=== PATIENT | male | born 1965 | race Two or more races ===

== ENCOUNTER → 2016-07-21 | Emergency (ER) | payer MEDICARE, OTHER ==
[~2016-07-21] VITALS: Ht 177.8 cm; Wt 99.8 kg
[~2016-07-21] MED LIST: FLUORESCEIN SODIUM OPHTH 1 EA STRIP ONE; TETRACAINE HCL/PF 0.5% UD 2 ML BOTTLE ONE
--- NOTE | 2016-07-21 19:52 | NUR ---
PT CAME FROM HOME W/ CO 12/20 LEFT EYE PAIN, STATES "PLASTIC GOT STUCK IN MY EYE". PT UNABLE TO OPEN. STATES THAT IT HAPPENED A COUPLE OF HOURS AGO.
--- NOTE | 2016-07-21 19:55 | NUR ---
AGUSTÍN LAL AT BEDSIDE FOR EVAL
--- NOTE | 2016-07-21 20:24 | NUR ---
Dr mccormick at bedside to perform eye exam
[2016-07-21 20:55] VITALS: BP 158/80
--- NOTE | 2016-07-21 20:56 | NUR ---
Patient discharged to home in stable condition. Written and verbal after care instructions given. Patient verbalizes understanding of instruction.
--- NOTE | 2016-07-21 21:51 | NUR ---
Unable to depart pt completely. depart button grayed out.
== END | disposition home or self-care (01) ==
LOC: ER 20:10
DX: S05.02XA Injury of conjunctiva and corneal abrasion without foreign body, left eye, initial encounter (principal); I10 Essential (primary) hypertension; E11.9 Type 2 diabetes mellitus without complications; F17.200 Nicotine dependence, unspecified, uncomplicated; W22.8XXA Striking against or struck by other objects, initial encounter; Y93.H1 Activity, digging, shoveling and raking; Y92.59 Other trade areas as the place of occurrence of the external cause; Y99.8 Other external cause status
CPT/HCPCS: A4606; Z7610

== ENCOUNTER 2019-03-07 16:16 | Emergency (ER) | payer MEDICARE, OTHER ==
[~2019-03-07] VITALS: Ht 177.8 cm; Wt 98.0 kg
--- NOTE | 2019-03-07 17:56 | NUR ---
PT AAOX4. AMBULATORY C/O PAIN AND REDNESS ON RUB. PER PATIENT "I HAVE A BITE ON MY BACK." PLACED ON MONIOTOR, PULSE OX, AND GOWN. AWAITING MD FOR EVAL.
[2019-03-07] MEDS ORDERED: LIDOCAINE 1%-EPI 1:100,000 20 ML VIAL ONE (18:05)
[2019-03-07] MEDS ORDERED: VANCOMYCIN 1 GM VIAL ONE (18:15)
[2019-03-07] MEDS ORDERED: PIPERACILLIN /TAZOBACTAM 3.375 G VIAL IV ONE (18:15)
[2019-03-07 18:24] LABS: BASOPHILS # (AUTO) 0.2 /CMM (0.0-0.2); BASOPHILS % (AUTO) 1.3 % (0.0-2.0); EOSINOPHILS % (AUTO) 1.9 % (0.0-6.0); HEMATOCRIT 42 % (39-51); HEMOGLOBIN 13.9 g/dL (13.5-17.5); LYMPHOCYTES # (AUTO) 2.5 /CMM (0.8-4.8); LYMPHOCYTES % (AUTO) 20.3 % (20.0-44.0); MEAN CORPUSCULAR HGB CONC 33 g/dl (31.0-36.0); MEAN CORPUSCULAR VOLUME 84 fL (80-96); MONOCYTES # (AUTO) 1.1 /CMM (0.1-1.30); MONOCYTES % (AUTO) 8.8 % (2.0-12.0); NEUTROPHILS # (AUTO) 8.4 /CMM (1.8-8.9); NEUTROPHILS % (AUTO) 67.7 % (43.0-81.0); PLATELET COUNT (AUTO) 308 /CMM (150-450); RED BLOOD CELL COUNT(AUTO) 4.99 MIL/uL (4.5-6.0); WHITE BLOOD COUNT (AUTO) 12.5 K/uL (4.3-11.0)
[2019-03-07] MEDS ORDERED: PIPERACILLIN /TAZOBACTAM 3.375 G in IV D5W 50 ML IV ONE (18:30)
[2019-03-07] MEDS ORDERED: IV NS 0.9% 1,000 ML BAG IV ONE ×2 (18:30)
[2019-03-07] MEDS ORDERED: VANCOMYCIN 1 GM in IV D5W 250 ML IV ONE (18:30)
[2019-03-07] MEDS ORDERED: LIDOCAINE 1%-EPI 1:100,000 20 ML VIAL TP ONE (18:30)
[2019-03-07 18:32] LABS: CALCIUM, SERUM 9.5 mg/dL (8.5-10.1); CREATININE 0.9 mg/dL (0.6-1.3); POTASSIUM 4.1 mmol/L (3.5-5.1)
--- NOTE | 2019-03-07 18:42 | NUR ---
Patient is resting comfortably in bed. Easily aroused. VSS.
[2019-03-07 18:48] LABS: ALBUMIN 4.1 g/dL (3.4-5.0); BILIRUBIN,DIRECT 0.2 mg/dL (0.0-0.2); BILIRUBIN,TOTAL 0.7 mg/dL (0.2-1.0); TOTAL PROTEIN, SERUM 8.2 g/dL (6.4-8.2)
--- NOTE | 2019-03-07 19:36 | NUR ---
Patient is resting comfortably in bed. Easily aroused. VSS.
--- NOTE | 2019-03-07 19:53 | NUR ---
AT BEDSIDE FOR WOUND CARE
--- NOTE | 2019-03-07 20:20 | NUR ---
IV removed. Catheter intact and site benign. Pressure and 4x4 applied to site. No bleeding noted.
--- NOTE | 2019-03-07 20:46 | NUR ---
IV removed. Catheter intact and site benign. Pressure and 4x4 applied to site. No bleeding noted.
[2019-03-07] MEDS ORDERED: BACITRACIN ZINC OINT PACKET 1 EA PACKET TP ONE (20:52)
[2019-03-07] MEDS ORDERED: BACITRACIN ZINC OINT (15 GM) 15 GM TUBE TP SCH (21:00)
--- NOTE | 2019-03-07 21:04 | NUR ---
Patient discharged to home in stable condition. Written and verbal after care instructions given. Patient verbalizes understanding of instruction and RX. pt ambulatory with a steady gait. VSS.
[2019-03-07 21:29] VITALS: BP 124/64
--- NOTE | 2019-03-08 15:10 | NUR ---
RECEIVED A CALL FROM LAB RE: BLOOD CULTURE RESULT OF GRAM POSITIVE COCCI AND CLUSTERS. PAVITHRA LOZOYA MADE AWARE, AND STATED PATIENT IS CURRENTLY ON KEFLEX AND BACTRIM, WILL WAIT FOR SENSITIVITY RESULT.
== END 2019-03-07 21:00 | disposition home or self-care (01) ==
LOC: ER 16:17
DX: E11.65 Type 2 diabetes mellitus with hyperglycemia (principal); L02.212 Cutaneous abscess of back [any part, except buttock and flank]; L02.511 Cutaneous abscess of right hand; E87.1 Hypo-osmolality and hyponatremia; D72.829 Elevated white blood cell count, unspecified; I10 Essential (primary) hypertension; F17.200 Nicotine dependence, unspecified, uncomplicated
CPT/HCPCS: 10061; 36415; 80048; 80076; 82962 ×2; 83605; 85025; 87040 ×2; 87077; 96365; 96368; 99284; A6403; J2543 ×2; J3370; J3490; J7030; J7060

== ENCOUNTER 2019-03-09 19:06 | Emergency (ER) | payer MEDICARE, OTHER ==
[~2019-03-09] VITALS: Ht 177.8 cm; Wt 94.3 kg
[2019-03-09 19:07] VITALS: BP 141/76
[2019-03-09] MEDS ORDERED: BACI/NEOM/POLY B OINT PKT 1 UDPKT PACKET ONE (20:19)
--- NOTE | 2019-03-09 20:20 | NUR ---
PT REC'D A NEW DRSG TO LT UPPER BACK AND TUBE GAUZE ON RT HAND FINGER.
[2019-03-09] MEDS ORDERED: BACI/NEOM/POLY B OINT PKT 1 UDPKT PACKET TP ONE (22:00)
== END 2019-03-09 20:22 | disposition home or self-care (01) ==
LOC: ER 19:11
DX: L02.511 Cutaneous abscess of right hand (principal); L02.212 Cutaneous abscess of back [any part, except buttock and flank]; E11.9 Type 2 diabetes mellitus without complications; I10 Essential (primary) hypertension; F17.200 Nicotine dependence, unspecified, uncomplicated
CPT/HCPCS: 82962-TC

== ENCOUNTER 2020-06-14 21:03 | Inpatient (IN) | payer MEDICARE, OTHER ==
[~2020-06-14] VITALS: Ht 180.3 cm; Wt 88.2 kg
--- NOTE | 2020-06-14 21:03 | NUR ---
[id number] FROM HOME C/O MIDSTERNAL CHEST PAIN X1 WEEK, WORSE TODAY PER RA, BS 266. REC'D 2 SPRAY NITRO AND 162MG ASPIRIN. ALSO C/O HEADACHE, PT AAOX4, PLACED ON MONITOR, NOT IN ANY DISTRESS, GOWNED, VSS, PENDING ER PROVIDER ASHLEY
[2020-06-14] MEDS ORDERED: ONDANSETRON HCL/PF 4 MG/2 ML VIAL ONE (21:47)
[2020-06-14] MEDS ORDERED: MORPHINE SULFATE INJ 4 MG/ML DISP.SYRIN ONE (21:48)
--- NOTE | 2020-06-14 21:48 | NUR ---
PT TO CT
[2020-06-14 21:55] LABS: BASOPHILS # (AUTO) 0.1 /CMM (0.0-0.2); BASOPHILS % (AUTO) 1.3 % (0.0-2.0); EOSINOPHILS % (AUTO) 3.6 % (0.0-6.0); HEMATOCRIT 36 % (39-51); HEMOGLOBIN 11.8 g/dL (13.5-17.5); LYMPHOCYTES # (AUTO) 3.2 /CMM (0.8-4.8); LYMPHOCYTES % (AUTO) 28.4 % (20.0-44.0); MEAN CORPUSCULAR HGB CONC 32 g/dl (31.0-36.0); MEAN CORPUSCULAR VOLUME 79 fL (80-96); MONOCYTES # (AUTO) 0.9 /CMM (0.1-1.30); MONOCYTES % (AUTO) 8.5 % (2.0-12.0); NEUTROPHILS # (AUTO) 6.5 /CMM (1.8-8.9); NEUTROPHILS % (AUTO) 58.2 % (43.0-81.0); PLATELET COUNT (AUTO) 284 /CMM (150-450); RED BLOOD CELL COUNT(AUTO) 4.62 MIL/uL (4.5-6.0); WHITE BLOOD COUNT (AUTO) 11.1 K/uL (4.3-11.0)
[2020-06-14] MEDS ORDERED: MORPHINE SULFATE INJ 2 MG/ML DISP.SYRIN IV ONE (22:00)
[2020-06-14] MEDS ORDERED: IV NS 0.9% 1,000 ML IV ONE (22:00)
[2020-06-14] MEDS ORDERED: ONDANSETRON HCL/PF 4 MG/2 ML VIAL IV ONE (22:00)
--- NOTE | 2020-06-14 22:08 | NUR ---
MEDICATED PER LOCK UP WORKER ORDER, PT XANDER WELL. WILL CONT TO MONITOR.
[2020-06-14 22:17] LABS: ALBUMIN 3.6 g/dL (3.4-5.0); BILIRUBIN,DIRECT 0.1 mg/dL (0.0-0.2); BILIRUBIN,TOTAL 0.4 mg/dL (0.2-1.0); CALCIUM, SERUM 9.2 mg/dL (8.5-10.1); CREATININE 0.9 mg/dL (0.6-1.3); POTASSIUM 3.9 mmol/L (3.5-5.1); TOTAL PROTEIN, SERUM 7.3 g/dL (6.4-8.2)
--- NOTE | 2020-06-14 22:25 | NUR ---
+TROP [phone]
[2020-06-14] MEDS ORDERED: SOD BORATE/BORIC AC/H2O/NACL 118 ML BOTTLE OP ONE (22:30)
--- NOTE | 2020-06-14 22:37 | NUR ---
PT GOING TO 313-2 PER HAND DRILLER.
[2020-06-14] MEDS ORDERED: HEPARIN SODIUM, PORCINE 5000 UNITS/1 ML VIAL IV ONE (23:00)
[2020-06-14] MEDS ORDERED: HEPARIN SODIUM, PORCINE 5000 UNITS/1 ML VIAL ONE (23:02)
[2020-06-14] MEDS ORDERED: SOD BORATE/BORIC AC/H2O/NACL 118 ML BOTTLE ONE (23:02)
--- NOTE | 2020-06-14 23:23 | NUR ---
REPORT GIVEN TO DIONNE BENJAMIN FOR RAMU PT WILL BE TRANSPORTED TO 3RD FLOOR
--- NOTE | 2020-06-14 23:31 | NUR ---
ATTEMPTED TO DO MEDREC; PT UNSURE OF MEDS, CALLED SISTER, WILL SEND LIST TOMORROW
--- NOTE | 2020-06-14 23:46 | NUR ---
PT TRANSPORTED TO 3RD FLOOR
--- NOTE | 2020-06-15 | NUR ---
TELE/RN OPENING NOTES RECEIVED REPORT FROM ED RN АННА. PATIENT COMING TO ROOM 313-2, PATIENT ARRIVED ON UNIT VIA GURNEY AT [id number]. PATIENT SUSTAINED NO INJURIES DURING TRANSPORT. PATIENT ALERT AND ORIENTED X 4. PATIENT STABLE ON ROOM AIR. PATIENT BREATHING IS EVEN AND UNLABORED. NO SIGNS OF SOB OR RESPIRATORY DISTRESS NOTED. PATIENT STATES NO CHEST PAIN NOTED AT THIS TIME, PATIENT STATES MILD HEADACHE. PATIENT HAS BELONGINGS AT BEDSIDE. PATIENT ABLE TO AMBULATE BY SELF, STEADY GAIT. SAFETY MEASURES ARE IN PLACED BED IS LOCKED AND PLACED IN THE LOW POSITION, CALL LIGHT IS WITHIN REACH, SIDE RAILS UP X 2. WILL CONTINUE WITH PATIENT PLAN OF CARE.
[2020-06-15] MEDS ORDERED: ACETAMINOPHEN 325 MG TABLET PO PRN (02:00)
[2020-06-15] MEDS ORDERED: ONDANSETRON HCL/PF 4 MG/2 ML VIAL IVP PRN (02:00)
[2020-06-15] MEDS ORDERED: Z GUARD REMEDY 2 OZ OINT TP PRN (02:00)
[2020-06-15] MEDS ORDERED: MORPHINE SULFATE INJ 2 MG/ML DISP.SYRIN IV PRN (02:00)
[2020-06-15] MEDS: ENOXAPARIN SODIUM 80 MG/0.8 ML DISP.SYRIN SQ SCH ×2 (02:37→14:54)
[2020-06-15 04:00] VITALS: BP 108/56
[2020-06-15 06:39] LABS: BASOPHILS # (AUTO) 0.1 /CMM (0.0-0.2); BASOPHILS % (AUTO) 1.4 % (0.0-2.0); EOSINOPHILS % (AUTO) 5.4 % (0.0-6.0); HEMATOCRIT 36 % (39-51); HEMOGLOBIN 11.8 g/dL (13.5-17.5); LYMPHOCYTES # (AUTO) 4.1 /CMM (0.8-4.8); LYMPHOCYTES % (AUTO) 42.1 % (20.0-44.0); MEAN CORPUSCULAR HGB CONC 33 g/dl (31.0-36.0); MEAN CORPUSCULAR VOLUME 79 fL (80-96); MONOCYTES # (AUTO) 0.8 /CMM (0.1-1.30); MONOCYTES % (AUTO) 7.7 % (2.0-12.0); NEUTROPHILS # (AUTO) 4.2 /CMM (1.8-8.9); NEUTROPHILS % (AUTO) 43.4 % (43.0-81.0); PLATELET COUNT (AUTO) 278 /CMM (150-450); RED BLOOD CELL COUNT(AUTO) 4.55 MIL/uL (4.5-6.0); WHITE BLOOD COUNT (AUTO) 9.8 K/uL (4.3-11.0)
--- NOTE | 2020-06-15 06:45 | NUR ---
MS/RN CLOSING NOTES PATIENT IN BED RESTING. PATIENT IS ALERT AND ORIENTED X 4. PATIENT BREATHING IS EVEN AND UNLABORED. NO SOB OR RESPIRATORY DISTRESS NOTED. PATIENT NEEDS MET DURING SHIFT. PATIENT HAS LEFT AC 20G IV ACCESS INTACT. SAFETY MEASURES ARE IN PLACE, BED IS LOCKED AND PLACED IN THE LOW POSITION, SIDE RAILS UP X 2, CALL LIGHT IS WITHIN REACH. WILL ENDORSE CARE TO DAY SHIFT NURSE.
[2020-06-15 06:52] LABS: CALCIUM, SERUM 8.9 mg/dL (8.5-10.1); CREATININE 0.8 mg/dL (0.6-1.3)
--- NOTE | 2020-06-15 07:07 | NUR ---
VENEER JOINTER OPERATOR OPENING NOTE RECEIVED PATIENT AWAKE IN BED. A/O X4. PT STABLE ON ROOM AIR. NO SOB NOTED. NO S/S OF RESPIRATORY DISTRESS. PATIENT IS ON EXTERNAL TELE REMEDIATION BIOANALYTICS CONSULTANT READING SR 89. NO C/O PAIN AT THIS TIME. IV ACCESS ON LEFT AC 18G INTACT, PATENT, AND FLUSHING WELL. SAFETY MEASURES MAINTAINED AT ALL TIMES. BED IN LOWEST LOCKED POSITION. SIDE RAILS UP X2. CALL LIGHT AND TABLE WITHIN REACH. WILL CONTINUE WITH PLAN OF CARE.
[2020-06-15 08:00] VITALS: BP 131/62
[2020-06-15] MEDS: ASPIRIN EC 81 MG TABLET.DR PO SCH (08:38)
[2020-06-15] MEDS ORDERED: GUAI100S11 PO (09:37)
[2020-06-15] MEDS ORDERED: RISP0.2515 PO (09:37)
[2020-06-15] MEDS ORDERED: TRIH5TAB3 PO (09:37)
[2020-06-15] MEDS ORDERED: ALBU18HF2 IH (09:37)
[2020-06-15] MEDS ORDERED: SERT-439 PO (09:37)
[2020-06-15] MEDS ORDERED: SITA1TAB6 PO (09:37)
[2020-06-15] MEDS ORDERED: LOSA50TA39 PO (09:37)
[2020-06-15] MEDS ORDERED: TRAM50TA2 PO (09:37)
[2020-06-15] MEDS ORDERED: GLIM4TAB37 PO (09:37)
[2020-06-15] MEDS ORDERED: DIGO125T PO (09:37)
[2020-06-15 12:00] VITALS: BP 122/68
--- NOTE | 2020-06-15 14:49 | NUR ---
RECEIVED ORDERS FOR DR ZAMBRANO FOR ACCUCHECK ACHS AND MILD SLIDING SCALE INSULIN. ORDERS READ BACK AND ENTERED. WILL CONTINUE WITH PLAN OF CARE
[2020-06-15] MEDS ORDERED: DEXTROSE 50%-WATER 50 ML DISP.SYRIN IV PRN (15:00)
[2020-06-15 16:00] VITALS: BP_SYST 103; BP_SYST 117; BP_DIAS 65; BP_DIAS 66
[2020-06-15] MEDS: METOPROLOL TARTRATE 25 MG TABLET PO SCH ×2 (16:38→21:32)
--- NOTE | 2020-06-15 17:30 | NUR ---
MAGDALENA ([phone]), PT'S SISTER CALLED AND WAS UPDATED. WILL CONTINUE WITH PLAN OF CARE
[2020-06-15] MEDS: BLOOD SUGAR DIAGNOSTIC 1 EACH STRIP IN SCH ×2 (17:36→21:28)
[2020-06-15] MEDS: INSULIN REGULAR, HUMAN 100 UNIT/ML 3 ML VIAL SQ PRN ×2 (17:38→21:35)
--- NOTE | 2020-06-15 19:12 | NUR ---
ENVIRONMENTAL EDUCATION SPECIALIST CLOSING NOTES PT AWAKE IN BED AT THIS TIME. PT REMAINED STABLE THROUGHOUT SHIFT. ALL CARE, NEEDS, MEDICATIONS AND TREATMENT ADMINISTERED ANTICIPATED PER ORDER. SAFETY PRECAUTIONS IN PLACE AND MAINTAINED AT ALL TIMES. BED IN LOWEST LOCKED POSITION, HOB ELEVATED, SIDE RAILS UPX2, CALL LIGHT AND TABLE WITHIN REACH. WILL ENDORSE TO STILL OPERATOR GIN NURSE FOR RAMU
[2020-06-15 20:00] VITALS: BP 154/81
[2020-06-15] MEDS: ATORVASTATIN 40 MG TABLET PO SCH (21:31)
[2020-06-16] VITALS (7 sets, daily range): BP systolic 101–147; BP diastolic 56–77
[2020-06-16] MEDS: ENOXAPARIN SODIUM 80 MG/0.8 ML DISP.SYRIN SQ SCH (03:32)
[2020-06-16 06:15] LABS: BASOPHILS # (AUTO) 0.2 /CMM (0.0-0.2); BASOPHILS % (AUTO) 2.6 % (0.0-2.0); EOSINOPHILS % (AUTO) 6.1 % (0.0-6.0); HEMATOCRIT 37 % (39-51); HEMOGLOBIN 12.3 g/dL (13.5-17.5); LYMPHOCYTES # (AUTO) 3.1 /CMM (0.8-4.8); LYMPHOCYTES % (AUTO) 38.7 % (20.0-44.0); MEAN CORPUSCULAR HGB CONC 33 g/dl (31.0-36.0); MEAN CORPUSCULAR VOLUME 79 fL (80-96); MONOCYTES # (AUTO) 0.8 /CMM (0.1-1.30); MONOCYTES % (AUTO) 10.5 % (2.0-12.0); NEUTROPHILS # (AUTO) 3.3 /CMM (1.8-8.9); NEUTROPHILS % (AUTO) 42.1 % (43.0-81.0); PLATELET COUNT (AUTO) 297 /CMM (150-450); RED BLOOD CELL COUNT(AUTO) 4.74 MIL/uL (4.5-6.0); WHITE BLOOD COUNT (AUTO) 7.9 K/uL (4.3-11.0)
[2020-06-16] MEDS: INSULIN REGULAR, HUMAN 100 UNIT/ML 3 ML VIAL SQ PRN ×2 (06:18→16:56)
[2020-06-16] MEDS: BLOOD SUGAR DIAGNOSTIC 1 EACH STRIP IN SCH ×2 (06:19→12:29)
--- NOTE | 2020-06-16 06:30 | NUR ---
DISTRICT RECRUITER CALLED. PATIENT HAS BEEN SCHEDULED FOR CARDIAC CATHETERIZATION SCHEDULED FOR 2PM. PATIENT MADE NPO.
[2020-06-16 07:01] LABS: CALCIUM, SERUM 8.7 mg/dL (8.5-10.1); CREATININE 0.8 mg/dL (0.6-1.3); MAGNESIUM 1.6 mg/dL (1.8-2.4); PHOSPHORUS 4.4 mg/dL (2.5-4.9); POTASSIUM 3.9 mmol/L (3.5-5.1)
--- NOTE | 2020-06-16 07:03 | NUR ---
SHEET METAL SHOP FOREMAN OPENING NOTE RECEIVED PATIENT AWAKE IN BED. A/O X4. PT STABLE ON ROOM AIR. NO SOB NOTED. NO S/S OF RESPIRATORY DISTRESS. PATIENT IS ON EXTERNAL TELE PRODUCTION EXPEDITER READING SR 64. NO C/O PAIN AT THIS TIME. IV ACCESS ON LEFT AC 18G INTACT, PATENT, AND FLUSHING WELL. SAFETY MEASURES MAINTAINED AT ALL TIMES. BED IN LOWEST LOCKED POSITION. SIDE RAILS UP X2. CALL LIGHT AND TABLE WITHIN REACH. WILL CONTINUE WITH PLAN OF CARE. Addendum: 06/16/20 at 0758 by JODY GIL RN MS RN OPENING NOTE RECEIVED PATIENT AWAKE IN BED. A/O X4. PT STABLE ON ROOM AIR. NO SOB NOTED. NO S/S OF RESPIRATORY DISTRESS. NO C/O PAIN AT THIS TIME. IV ACCESS ON LEFT AC 18G INTACT, PATENT, AND FLUSHING WELL. SAFETY MEASURES MAINTAINED AT ALL TIMES. BED IN LOWEST LOCKED POSITION. SIDE RAILS UP X2. CALL LIGHT AND TABLE WITHIN REACH. WILL CONTINUE WITH PLAN OF CARE.
[2020-06-16] MEDS: METOPROLOL TARTRATE 25 MG TABLET PO SCH ×2 (09:17→20:49)
[2020-06-16] MEDS: ASPIRIN EC 81 MG TABLET.DR PO SCH (09:17)
[2020-06-16] MEDS: Magnesium 1GM/D5W 100ML PREMIX 100 ML IV SCH ×2 (11:45→12:47)
--- NOTE | 2020-06-16 12:32 | NUR ---
BS 215. PT NPO. INSULIN COVERAGE HELD PRE-PROCEDURE. WILL CONTINUE TO MONITOR.
[2020-06-16] MEDS ORDERED: IODIXANOL 150 ML IV ONE (12:47)
[2020-06-16] MEDS ORDERED: IV NS 0.9% 1,000 ML ONE (12:47)
[2020-06-16] MEDS ORDERED: FENTANYL PF 100MCG/2ML AMPUL ONE (12:47)
[2020-06-16] MEDS ORDERED: MIDAZOLAM HCL 2 MG/2ML VIAL ONE (12:47)
[2020-06-16] MEDS ORDERED: IV SET PRIMARY PUMP SET 1 EA INFUS.SET MC ONE (12:47)
[2020-06-16] MEDS ORDERED: LIDOCAINE HCL/MPF 1% 30 ML VIAL IJ ONE (12:49)
[2020-06-16] MEDS ORDERED: NITROGLYCERIN ICAR 1,000 MCG/10 ML VIAL ICAR ONE (12:49)
--- NOTE | 2020-06-16 13:50 | NUR ---
PT T-BAND ASSESSED AT THIS TIME, PT ABLE TO WIGGLE FINGERS, CAPILLARY REFILL <3SECONDS, RIGHT RADIAL PULSE PRESENT, SPO2 96%. 3CC OF AIR REMOVED AT THIS TIME, WILL CONTINUE TO MONITOR
--- NOTE | 2020-06-16 14:05 | NUR ---
PT T-BAND ASSESSED AT THIS TIME, PT ABLE TO WIGGLE FINGERS, CAPILLARY REFILL <3SECONDS, RIGHT RADIAL PULSE PRESENT, SPO2 96%. 3CC OF AIR REMOVED AT THIS TIME, PT TOLERATED WELL. WILL CONTINUE TO MONITOR
--- NOTE | 2020-06-16 14:20 | NUR ---
PT T-BAND ASSESSED AT THIS TIME, PT ABLE TO WIGGLE FINGERS, CAPILLARY REFILL <3SECONDS, RIGHT RADIAL PULSE PRESENT, SPO2 98%. 3CC OF AIR REMOVED AT THIS TIME, HAND WARM TO TOUCH AND PINK. PT TOLERATED WELL. WILL CONTINUE TO MONITOR
--- NOTE | 2020-06-16 14:35 | NUR ---
PT T-BAND ASSESSED AT THIS TIME, PT ABLE TO WIGGLE FINGERS, CAPILLARY REFILL <3SECONDS, RIGHT RADIAL PULSE PRESENT, SPO2 95%. 2CC OF AIR REMOVED AT THIS TIME, HAND WARM TO TOUCH AND PINK. NO BLOOD NOTED IN T-BAND PT TOLERATED WELL. WILL CONTINUE TO MONITOR
--- NOTE | 2020-06-16 14:50 | NUR ---
PT TR-BAND ASSESSED AT THIS TIME, PT ABLE TO WIGGLE FINGERS, CAPILLARY REFILL <3SECONDS, RIGHT RADIAL PULSE PRESENT, SPO2 97%. 2CC OF AIR REMOVED AT THIS TIME, HAND WARM TO TOUCH AND PINK. PT TOLERATED WELL. NO BLOOD NOTED IN TR-BAND. WILL CONTINUE TO MONITOR
[2020-06-16] MEDS ORDERED: DEXTROSE 50%-WATER 50 ML DISP.SYRIN IV PRN (15:30)
[2020-06-16] MEDS ORDERED: *INSULIN REGULAR(HUMULIN R)HUM 100 UNIT/ML VIAL SQ PRN (15:30)
--- NOTE | 2020-06-16 15:35 | NUR ---
PT TR-BAND ASSESSED AT THIS TIME, PT ABLE TO WIGGLE FINGERS, CAPILLARY REFILL <3SECONDS, RIGHT RADIAL PULSE PRESENT, SPO2 98%. NO AIR IN TR-BAND, HAND WARM TO TOUCH AND PINK. NO BLOOD NOTED IN TR-BAND. TR-BAND REMOVED AT THIS TIME. NO S/O BLEEDING NOTED, PRESSURIZED GAUZE AND TAPE APPLIED. WILL CONTINUE WITH PLAN OF CARE
--- NOTE | 2020-06-16 16:35 | NUR ---
BS NOTED AT 420. PT ASYMPTOMATIC. 15 UNITS OF REGULAR INSULIN GIVEN PER SLIDING SCALE. MADE AWARE. WILL CONTINUE TO MONITOR.
[2020-06-16] MEDS: BLOOD SUGAR DIAGNOSTIC 1 EACH STRIP VI SCH ×2 (16:39→21:16)
--- NOTE | 2020-06-16 18:36 | NUR ---
FWS FACULTY ASSISTANT CLOSING NOTE PT AWAKE IN BED AT THIS TIME. PT REMAINED STABLE THROUGHOUT SHIFT. ALL CARE, NEEDS, MEDICATIONS AND TREATMENT ADMINISTERED ANTICIPATED PER ORDER. SAFETY PRECAUTIONS IN PLACE AND MAINTAINED AT ALL TIMES. BED IN LOWEST LOCKED POSITION, HOB ELEVATED, SIDE RAILS UP X2. CALL LIGHT AND TABLE WITHIN REACH. WILL ENDORSE TO ONCOMING NIGHT NURSE FOR CONTINUITY OF CARE.
--- NOTE | 2020-06-16 18:50 | NUR ---
MAGDALENA ([phone]), PT'S SISTER CALLED AT THIS TIME TO PROVIDE INFORMATION OF PT'S HOME MEDICATION. PER PT'S SISTER, PT TAKES: ZOLOFT 100MG DAILY IN THE MORNING ARTANE 5MG TID DAILY RISPERDAL 2MG BID WILL ENDORSE TO CHILD WELFARE COUNSELOR NURSE FOR RAMU
--- NOTE | 2020-06-16 19:20 | NUR ---
production control clerk opening notes Received Pt from morning nurse. Pt is resting in bed comfortably. Pt is alert and orientedX3. Pt speaks Sinhala/Cape Verdean and able to make needs known. Respiration is normal in room air. No SOB. No S/S of distress noted. Tele monitor showed SR Hr at 73. IV site at LAC# 18 is clean, intact, flushes well and SL. Safety precautions is maintained. Bed at low position, brakes locked, side rails upX2, hob elevated and call light is within reach. Will continue to monitor.
[2020-06-16] MEDS: ATORVASTATIN 40 MG TABLET PO SCH (21:09)
[2020-06-17] VITALS (7 sets, daily range): BP systolic 94–127; BP diastolic 46–65
[2020-06-17] MEDS: BLOOD SUGAR DIAGNOSTIC 1 EACH STRIP VI SCH ×2 (06:30→11:37)
[2020-06-17] MEDS: INSULIN REGULAR, HUMAN 100 UNIT/ML 3 ML VIAL SQ PRN ×2 (06:33→11:39)
[2020-06-17 06:51] LABS: CREATININE 0.7 mg/dL (0.6-1.3); MAGNESIUM 1.9 mg/dL (1.8-2.4); POTASSIUM 3.7 mmol/L (3.5-5.1)
--- NOTE | 2020-06-17 06:56 | NUR ---
fiber optic technician closing notes Pt is resting in bed comfortably. Pt is alert and orientedX3. Pt speaks Mauritanian/Grenadian and able to make needs known. Respiration is normal in room air. No SOB. No S/S of distress noted. Routine meds were given as ordered. Tele monitor showed SR Hr at 65. IV site at LAC# 18 is clean, intact, flushes well and SL. All needs met and attended. Safety precautions is maintained. Bed at low position, brakes locked, side rails upX2, hob elevated and call light is within reach. Will endorse to morning nurse for RAMU.
--- NOTE | 2020-06-17 07:30 | NUR ---
SPOOLER OPERATOR AUTOMATIC OPENING NOTE RECEIVED PATIENT IN BED. A/O X3. AMBULATORY. WELSH SPEAKING. ON ROOM AIR, NO SOB NOTED. IN NO APPARENT DISTRESS. DENIES ANY PAIN OR DISCOMFORT AT THIS TIME. IV ACCESS ON L AC #18 G, INTACT. SAFETY MEASURES MAINTAINED. BED IN LOWEST POSITION, BRAKES LOCKED. SIDE RAILS UP X2. CALL LIGHT WITHIN REACH. WILL CONTINUE PLAN OF CARE.
[2020-06-17] MEDS: ASPIRIN EC 81 MG TABLET.DR PO SCH (08:16)
[2020-06-17] MEDS: METOPROLOL TARTRATE 25 MG TABLET PO SCH (08:16)
[2020-06-17] MEDS ORDERED: METO25TA20 PO (10:12)
[2020-06-17] MEDS ORDERED: ATOR40TA PO (10:12)
[2020-06-17] MEDS ORDERED: ASPI-1420 PO (10:12)
--- NOTE | 2020-06-17 13:57 | NUR ---
RN NOTE PATIENT DISCHARGED. AMBULATORY. ACCOMPANIED DOWNSTAIRS, PICKED UP BY ESTUARDO. HEALTH TEACHING AND DISCHARGE INSTRUCTIONS WERE GIVEN TO THE PATIENT, VERBALIZED UNDERSTANDING. IV ACCESS AND ID WRISTBAND REMOVED. BELONGINGS GIVEN TO THE PT.
== END 2020-06-17 13:57 | disposition home health service (06) | DRG 281 ==
LOC: ER 21:05 → TELE 22:40 → EDBD 22:40
PROVIDERS: ADMIT Internal Medicine; ATTEND Nurse Practitioner Acute Care
PROC: 4A023N7 Measurement of Cardiac Sampling and Pressure, Left Heart, Percutaneous Approach (ICD-10-PCS; principal; 2020-06-16)
PROC: B211YZZ Fluoroscopy of Multiple Coronary Arteries using Other Contrast (ICD-10-PCS; 2020-06-16)
PROC: B34HZZZ Ultrasonography of Right Upper Extremity Arteries (ICD-10-PCS; 2020-06-16)
DX: I25.110 Atherosclerotic heart disease of native coronary artery with unstable angina pectoris (principal); I21.4 Non-ST elevation (NSTEMI) myocardial infarction; E22.2 Syndrome of inappropriate secretion of antidiuretic hormone; I10 Essential (primary) hypertension; E11.65 Type 2 diabetes mellitus with hyperglycemia; F41.9 Anxiety disorder, unspecified; E78.5 Hyperlipidemia, unspecified; D72.829 Elevated white blood cell count, unspecified; D63.8 Anemia in other chronic diseases classified elsewhere; Z20.822 Contact with and (suspected) exposure to COVID-19; F17.200 Nicotine dependence, unspecified, uncomplicated; Z79.84 Long term (current) use of oral hypoglycemic drugs; Z79.51 Long term (current) use of inhaled steroids; Z79.899 Other long term (current) drug therapy; I05.9 Rheumatic mitral valve disease, unspecified; T50.995A Adverse effect of other drugs, medicaments and biological substances, initial encounter; Y92.9 Unspecified place or not applicable
CPT/HCPCS: 36415; 70450-TC; 71045-TC; 80048-TC; 80061-TC; 80076-TC; 82962-TC; 83735-TC; 84100-TC; 84484-TC; 85025-TC; 85378-TC; 87081-TC; 93307-TC; C9803; G0378; G0500; J1644; J1650; J1815; J2250; J2270; J2405; J3010; J3475; J3490; J7030; Q9967